=== PATIENT | female | born 1960 | race Caucasian/White ===

== ENCOUNTER → 2017-05-16 | Outpatient (CLI) | payer OTHER ==
[~2017-05-16] MED LIST: ALPR0.5T6 PO; ESTR0.5T PO; ESTR42.53 VG; GABA-826 PO; LIOT25TA3 PO; MEDR2.5T30 PO; MELO15TA24 PO; TRAZ50TA18 PO
[2017-05-16 15:16] LABS: BASOPHILS # (AUTO) 0.03 x10^3/uL (0-0.1); BASOPHILS % (AUTO) 1 % (0-1); EOSINOPHILS # (AUTO) 0.15 x10^3/uL (0-0.4); EOSINOPHILS % (AUTO) 3 % (1-7); LYMPHOCYTES # (AUTO) 1.96 x10^3/uL (1-3.4); LYMPHOCYTES % (AUTO) 34 % (22-44); MD NO; MEAN CORPUSCULAR HEMOGLOBIN 32.8 pg (27.0-34.8); MEAN CORPUSCULAR HGB CONC 33.4 g/dL (32.4-35.8); MEAN CORPUSCULAR VOLUME 98.2 fL (80-100); MEAN PLATELET VOLUME 8.2 fL (7.4-10.4); MONOCYTES # (AUTO) 0.46 x10^3/uL (0.2-0.8); MONOCYTES % (AUTO) 8 % (2-9); NEUTROPHILS # (AUTO) 3.26 x10^3/uL (1.8-6.8); NEUTROPHILS % (AUTO) 56 % (42-75); PLATELET COUNT 221 x10^3/uL (130-400); RED BLOOD COUNT 4.08 x10^6/uL (3.82-5.3); RED CELL DISTRIBUTION WIDTH 14.1 % (9.6-15.2)
[2017-05-16 15:21] LABS: MICROSCOPIC AUTO
[2017-05-16 15:22] LABS: CULTURE INDICATED? NO
[2017-05-16 15:32] LABS: CHLORIDE 110 mmol/L (98-107)
[2017-05-16 15:33] LABS: ALANINE AMINOTRANSFERASE 23 U/L (12-78); ALBUMIN 3.8 g/dL (3.4-5.0); ANION GAP 6 mmol/L (5-15); CALCIUM 8.6 mg/dL (8.5-10.1); CREATININE 0.76 mg/dL (0.55-1.02)
[2017-05-16 15:34] LABS: ALKALINE PHOSPHATASE 59 U/L (45-117); BILIRUBIN,TOTAL 0.2 mg/dL (0.2-1.0); TOTAL PROTEIN 7.3 g/dL (6.4-8.2)
[2017-05-16 15:41] LABS: INTERNATIONAL NORMALIZED RATIO 0.94 (0.93-1.1); PROTHROMBIN TIME 9.8 Seconds (9.6-11.5)
== END | disposition home or self-care (01) ==
LOC: STAR 13:56
PROVIDERS: ATTEND Neurological Surgery
DX: Z01.818 Encounter for other preprocedural examination (principal); G89.29 Other chronic pain; M50.322 Other cervical disc degeneration at C5-C6 level; M50.323 Other cervical disc degeneration at C6-C7 level
CPT/HCPCS: 36415; 71046; 72050; 80053; 81001; 85025; 85610; 85730; 93005

== ENCOUNTER 2017-05-27 09:44 | Inpatient (IN) | payer OTHER ==
[~2017-05-27] VITALS: Ht 172.7 cm; Wt 93.8 kg
[2017-05-27] MEDS ORDERED: LACTATED RINGERS 1,000 ML IV SCH (10:18)
[2017-05-27 10:19] VITALS: BP 127/85
[2017-05-27] MEDS ORDERED: ACET-1600 PO (10:25)
[2017-05-27] MEDS ORDERED: PROPOFOL 10 MG/ML, 50ML ONE (11:40)
[2017-05-27] MEDS ORDERED: MIDAZOLAM 1 MG/ML, 2ML ONE (11:40)
[2017-05-27] MEDS ORDERED: ONDANSETRON 2MG/ML, 2ML ONE (11:40)
[2017-05-27] MEDS ORDERED: KETAMINE 10 MG/ML, 20ML ONE (11:40)
[2017-05-27] MEDS ORDERED: FENTANYL PF 250 MCG/5ML ONE (11:40)
[2017-05-27] MEDS ORDERED: CEFAZOLIN 1,000 MG ONE (11:40)
[2017-05-27] MEDS ORDERED: SUCCINYLCHOLINE 20 MG/ML, 10ML ONE (11:40)
[2017-05-27] MEDS ORDERED: DEXAMETHASONE 4 MG/ML, 1ML ONE (11:40)
[2017-05-27] MEDS ORDERED: PROPOFOL 10 MG/ML, 20ML ONE (11:40)
[2017-05-27] MEDS ORDERED: BUPIVACAINE/PF 0.5% ONE (12:10)
[2017-05-27] MEDS ORDERED: THROMBIN 5,000 UNIT VIAL TP ONE (12:15)
[2017-05-27] MEDS ORDERED: BACITRACIN 50,000 UNIT IRRIG ONE (12:15)
[2017-05-27] MEDS ORDERED: ONDANSETRON 2MG/ML, 2ML IVPush PRN (12:30)
[2017-05-27] MEDS ORDERED: hydrALAzine 20 MG/ML, 1ML IV PRN (12:30)
[2017-05-27] MEDS ORDERED: OXYcodone 5 MG/5 ML ORAL.SOL UDC PO PRN (12:30)
[2017-05-27] MEDS ORDERED: LORazepam 2 MG/ML, 1ML IVPush PRN (12:30)
[2017-05-27] MEDS ORDERED: MEPERIDINE/PF 25MG/0.5ML IVPush PRN (12:30)
[2017-05-27] MEDS ORDERED: FENTANYL PF 100 MCG/2ML IV PRN (12:30)
[2017-05-27] MEDS ORDERED: PROMETHAZINE 25 MG/ML, 1ML IV PRN (12:30)
[2017-05-27] MEDS ORDERED: DIAZEPAM 5 MG/ML, 2ML IVPush PRN (12:30)
[2017-05-27] MEDS ORDERED: METOCLOPRAMIDE 5 MG/ML, 2ML IV PRN (12:30)
[2017-05-27] MEDS ORDERED: MIDAZOLAM 1 MG/ML, 2ML IV PRN (12:30)
[2017-05-27] MEDS ORDERED: ALBUTEROL/IPRATROPIUM 2.5MG/0.5MG, 3 ML NPPB PRN (12:30)
[2017-05-27] MEDS ORDERED: LABETALOL 5MG/ML, 20ML IV PRN (12:30)
[2017-05-27] MEDS ORDERED: ACETAMINOPHEN 325 MG TABLET PO PRN (12:30)
[2017-05-27] MEDS ORDERED: HYDROmorphone 2 MG/ML, 1ML ONE ×2 (14:23→14:39)
[2017-05-27] MEDS ORDERED: HYDROmorphone PCA 30 MG/30 ML ONE (14:23)
[2017-05-27] MEDS ORDERED: HYDROmorphone PCA 30 MG/30 ML IV PRN ×2 (14:30→17:00)
[2017-05-27] MEDS: HYDROmorphone 1 MG/ML, 1ML IV PRN ×5 (14:40→15:34)
[2017-05-27] MEDS ORDERED: ACETAMINOPHEN 650 MG/20.3 ML UDC ONE (15:08)
[2017-05-27] MEDS ORDERED: OXYcodone 5 MG/5 ML ORAL.SOL UDC ONE (15:09)
[2017-05-27] MEDS ORDERED: MAGNESIUM HYDROXIDE 8%, 30ML UDC PO PRN (17:00)
[2017-05-27] MEDS ORDERED: DIPHENHYDRAMINE 25 MG CAPSULE PO PRN (17:00)
[2017-05-27] MEDS ORDERED: ONDANSETRON 2MG/ML, 2ML IV PRN (17:00)
[2017-05-27] MEDS ORDERED: morphine SULFATE 10 MG/ML, 1ML IV PRN (17:00)
[2017-05-27] MEDS ORDERED: OXYcodone/APAP 5/325MG TABLET PO PRN (17:00)
[2017-05-27] MEDS ORDERED: BISACODYL 10 MG SUPP PR PRN (17:00)
[2017-05-27] MEDS ORDERED: DIPHENHYDRAMINE 50 MG/ML, 1ML IVPush PRN (17:00)
[2017-05-27] MEDS: NS + 20MEQ KCL 1,000 ML IV SCH ×2 (17:00→21:05)
[2017-05-27] MEDS: CEFAZOLIN PMX 1GM/50ML 50 ML IVPB SCH (18:22)
[2017-05-27] MEDS ORDERED: ESTRADIOL 0.5 MG TABLET HOMEMEDPO SCH (21:00)
[2017-05-27] MEDS ORDERED: MEDROXYPROGESTERONE ACETATE 2.5 MG TABLET HOMEMEDPO SCH (21:00)
[2017-05-27] MEDS ORDERED: TRAZODONE 150MG TABLET HOMEMEDPO SCH (21:00)
[2017-05-27] MEDS ORDERED: ESTROGENS CONJUGATED VAG CRM 0.625MG/1G, 30GM VG ONE (21:00)
[2017-05-27] MEDS ORDERED: GABAPENTIN 100 MG CAPSULE HOMEMEDPO SCH (21:00)
[2017-05-27] MEDS: TIZANIDINE 4MG TABLET PO SCH (22:14)
[2017-05-28 00:08] VITALS: BP 94/61
[2017-05-28] MEDS: CEFAZOLIN PMX 1GM/50ML 50 ML IVPB SCH (03:30)
[2017-05-28 03:44] VITALS: BP 94/60
[2017-05-28] MEDS: TIZANIDINE 4MG TABLET PO SCH (06:02)
[2017-05-28 06:52] VITALS: BP 94/61
[2017-05-28] MEDS: NS + 20MEQ KCL 1,000 ML IV SCH (08:30)
[2017-05-28] MEDS ORDERED: SENNA/DOCUSATE TABLET PO SCH (09:00)
[2017-05-28] MEDS ORDERED: OXYC-302 PO (09:34)
[2017-05-28] MEDS ORDERED: TIZA4TAB9 PO (09:34)
[2017-05-28 12:39] VITALS: BP 97/54
== END 2017-05-28 12:56 | disposition home or self-care (01) | DRG 472 ==
LOC: ORIP 09:44 → 4NOR 15:54
PROVIDERS: ADMIT Neurological Surgery; ATTEND Neurological Surgery
PROC: 0RG20A0 Fusion of 2 or more Cervical Vertebral Joints with Interbody Fusion Device, Anterior Approach, Anterior Column, Open Approach (ICD-10-PCS; 2017-05-27)
PROC: 01N10ZZ Release Cervical Nerve, Open Approach (ICD-10-PCS; 2017-05-27)
PROC: 0RB30ZZ Excision of Cervical Vertebral Disc, Open Approach (ICD-10-PCS; principal; 2017-05-27 13:00)
DX: M48.02 Spinal stenosis, cervical region (principal); F31.30 Bipolar disorder, current episode depressed, mild or moderate severity, unspecified; M47.812 Spondylosis without myelopathy or radiculopathy, cervical region; M50.321 Other cervical disc degeneration at C4-C5 level; M53.82 Other specified dorsopathies, cervical region; F41.9 Anxiety disorder, unspecified; Z87.891 Personal history of nicotine dependence; Z82.49 Family history of ischemic heart disease and other diseases of the circulatory system; Z83.3 Family history of diabetes mellitus; Z80.9 Family history of malignant neoplasm, unspecified
CPT/HCPCS: 36415; 86850; 86900; 95938; 95941; C1713; J0171; J0690; J1100; J1170; J2250; J2405; J2704; J3010; J3480; J3490; J0330; J7120